=== PATIENT | female | born 1965 | race Two or more races ===

== ENCOUNTER 2020-10-18 09:00 | Outpatient (CLI) | payer OTHER | END 2020-10-18 11:00 | disposition home or self-care (01) | LOC: ASH CLINIC 09:00 | DX: Z23 Encounter for immunization (principal); U07.1 COVID-19 ==

== ENCOUNTER → 2020-10-18 11:31 | Outpatient (CLI) | payer OTHER | END | disposition home or self-care (01) | LOC: LAB 11:31 | PROVIDERS: ATTEND General Practice | DX: Z03.818 Encounter for observation for suspected exposure to other biological agents ruled out (principal); Z20.828 Contact with and (suspected) exposure to other viral communicable diseases; R05 Cough; R06.02 Shortness of breath ==

== ENCOUNTER 2021-11-27 07:27 | Outpatient (CLI) | payer OTHER | END 2021-11-27 09:34 | disposition home or self-care (01) | LOC: NUCLEAR 07:27 | PROVIDERS: ATTEND Internal Medicine | DX: I25.110 Atherosclerotic heart disease of native coronary artery with unstable angina pectoris (principal) ==